=== PATIENT | female | born 1995 | race Caucasian/White ===

== ENCOUNTER 2020-10-22 15:07 | Emergency (ER) | payer OTHER | END 2020-10-22 17:00 | disposition home or self-care (01) | LOC: ER1 15:07 | DX: S06.9X9A Unspecified intracranial injury with loss of consciousness of unspecified duration, initial encounter (principal); E03.9 Hypothyroidism, unspecified; F17.210 Nicotine dependence, cigarettes, uncomplicated; V49.50XA Passenger injured in collision with unspecified motor vehicles in traffic accident, initial encounter; Y92.410 Unspecified street and highway as the place of occurrence of the external cause | CPT/HCPCS: 70450; 99284 ==